=== PATIENT | female | born 1970 | race African-American/Black ===

== ENCOUNTER 2017-09-15 01:34 | Emergency (ER) | payer SELFPAY ==
[~2017-09-15] VITALS: Ht 180.3 cm; Wt 153.3 kg
[2017-09-15 01:53] VITALS: BP 172/94
--- NOTE | 2017-09-15 02:13 | NUR ---
PT LEFT WITHOUT DISCHARGE PAPEROWORK. MADE AWARE.
== END 2017-09-15 02:18 | disposition home or self-care (01) ==
LOC: ER 01:46
DX: R05 Cough (principal); Z88.8 Allergy status to other drugs, medicaments and biological substances
CPT/HCPCS: A4606; Z7610